=== PATIENT | male | born 1940 | race Caucasian/White ===

== ENCOUNTER 2021-07-13 08:24 | Outpatient (CLI) | payer SELFPAY ==
--- NOTE | ~2021-07-13 | US_ITS ---
EXAMINATION: US retroperitoneal duplex ltd EXAM DATE: 07/13/2021 09:12 INDICATION: Essential hypertension. TECHNIQUE: Multiple grayscale and Doppler images of the kidneys and renal arteries were obtained. T here is no prior study for comparison. FINDINGS: The aorta peak systolic velocity is 108 cm/s. Renal arteries interrogated in several segments from origin to hilum. RIGHT RENAL ARTERY Proximal segment (origin): 55 cm/s. Middle segment: 61 cm/s. Distal segment (hilum): 56 cm/s. LEFT RENAL ARTERY Proximal segment (origin): 58 cm/s. Middle segment: 46 cm/s. Distal segment (hilum): 42 cm/s. IMPRESSION: Renal artery Doppler velocities within normal limits. Reviewed, dictated and finalized at location B.
== END 2021-07-13 08:25 | disposition home or self-care (01) ==
LOC: ANHIMG 08:25
PROVIDERS: PCP Internal Medicine; Visit Provider Internal Medicine Cardiovascular Disease
DX: I11.0 Hypertensive heart disease with heart failure (principal)
CPT/HCPCS: 93976

== ENCOUNTER 2021-12-20 09:14 | Outpatient (CLI) | payer MEDICARE, SELFPAY ==
[2021-12-20 20:45] LABS: Alanine Aminotransferase 34 U/L (6-50); Albumin Level 4.1 g/dL (3.5-5.1); Alkaline Phosphatase 79 U/L (38-126); Anion Gap 11 mmol/L (8-16); Aspartate Amino Transferase 56 U/L (17-59); Bilirubin,Total 0.8 mg/dL (0.2-1.3); Blood Urea Nitrogen 21 mg/dL (9-20); Calcium 8.3 mg/dL (8.4-10.2); Carbon Dioxide 27 mmol/L (22-30); Chloride 103 mmol/L (98-107); Cholesterol 105 mg/dL (0-200); Estimated Glomerular Filt Rate > 60; Glucose 93 mg/dL (65-110); HDL Direct 30 mg/dL; Potassium 4.5 mmol/L (3.4-5.0); Sodium 141 mmol/L (137-145); Triglycerides 83 mg/dL (<150)
[2021-12-20 20:56] LABS: LDL Cholesterol Direct 48 mg/dL
== END 2021-12-20 09:15 | disposition home or self-care (01) ==
LOC: ANHGOSHLAB 09:17
PROVIDERS: PCP Family Medicine; Visit Provider Family Medicine
DX: I10 Essential (primary) hypertension (principal); I25.810 Atherosclerosis of coronary artery bypass graft(s) without angina pectoris
CPT/HCPCS: 36415; 80053; 80061

== ENCOUNTER 2021-12-20 09:29 | Emergency (ER) | payer MEDICARE, SELFPAY ==
[2021-12-20 09:42] VITALS: BP 130/117; PULSE 72; RESP 16; TEMP 36.5; O2SAT 95
--- NOTE | 2021-12-20 09:48 | ED.URI ---
HPI - URI/Sore Throat General Chief Complaint: Upper Respiratory Infection Stated Complaint: pt wasnts covid test, cough Time Seen by Provider: 12/20/21 09:48 Source: patient and RN notes reviewed Mode of arrival: ambulatory Limitations: no limitations History of Present Illness HPI Narrative: 81-year-old male presents with concern for exposure to COVID and cough. He reports his is positive for COVID and he started coughing 3 days ago. He denies body aches, chills, sweats, shortness of breath, fever. He denies nasal congestion, rhinorrhea, sore throat. MD elicited complaint: cough Related Data Allergies Allergy/AdvReac Type Severity Reaction Status Date / Time Sulfa (Sulfonamide Allergy Unknown Abdominal Verified 12/20/21 09:41 Antibiotics) Pain Review of Systems Review of Systems: CONSTITUTIONAL: Denies malaise, chills, sweats, or fever. EYES: Denies visual changes, redness, or discharge. ENT: Denies rhinorrhea, congestion, sinus pain, otalgia and sore throat. CARDIOVASCULAR: Denies chest pain, palpitations, or edema. RESPIRATORY: Reports cough. Denies dyspnea. GASTROINTESTINAL: Denies abdominal pain, nausea, vomiting, diarrhea SKIN: Denies rash or itching. MUSCULOSKELETAL: Denies myalgia. NEUROLOGIC: Denies headache. All systems reviewed & are unremarkable except as noted in HPI and below PMFSH Family History Family History Father Family history of congestive heart failure, Onset Age: 86 Sibling Family history of bipolar disorder Mother Family history of coronary artery disease, Onset Age: 92 Patient's mother is , Onset Age: 92 Social History Social History Smoking status: Former smoker Alcohol intake: current Comments At time of signature, agree with nursing past medical, surgical, social and family history. There is no relevant family history pertinent to the presenting complaint Exam Narrative: GENERAL: Well-appearing, well-nourished, and in no acute distress. HEAD: Normocephalic EYES: PERRLA, conjunctivae clear ENT: Nares clear. Mucous membranes moist. TM pearly salter with dull light reflex bilaterally; no tragal tenderness. Oropharynx not erythematous without lesions. Tonsils not enlarged and without exudate, no drooling, no hoarseness, no trismus, uvula midline. NECK: Supple. No lymphadenopathy CHEST: Clear to auscultation, breath sounds equal. No wheezing, rhonchi, rales, or stridor. No respiratory distress, speaks in full sentences. HEART: Regular rate and rhythm. No murmur heard. SKIN: Warm, dry, no rash. NEURO: Alert and oriented x3. PSYCH: Normal mood and affect Course Course Emergency Course: Discussed COVID antivirals benefits and risks, patient would like to try Paxlovid Patient is aware of diagnosis, understands and agrees to treatment plan. Anticipatory guidance given. Patient agrees to follow-up as directed and is aware of reasons to seek care at the emergency department. Portions of this record may have been created with voice recognition software Level of Care: Express Care Visit Vital Signs Vital signs: Vital Signs Temperature 97.7 F 12/20/21 09:42 Pulse Rate 72 12/20/21 09:42 Respiratory Rate 16 12/20/21 09:42 Blood Pressure 130/117 H 12/20/21 09:42 Pulse Oximetry 95 12/20/21 09:42 Temperature 97.7 F 12/20/21 09:42 Pulse Rate 72 12/20/21 09:42 Respiratory Rate 16 12/20/21 09:42 Blood Pressure 130/117 H 12/20/21 09:42 Pulse Oximetry 95 12/20/21 09:42 Reviewed. MDM - URI/Sore Throat MDM Narrative Medical decision making narrative: Differential diagnosis considered: [place] virus, strep pharyngitis, allergic rhinitis, upper respiratory tract infection, sinusitis, rhinosinusitis, nasopharyngitis. viral pharyngitis, otitis media, otitis externa, pneumonia, bronchitis, viral cough syndrome, mark
== END 2021-12-20 10:02 | disposition home or self-care (01) ==
PROVIDERS: Emergency Provider Nurse Practitioner; PCP Family Medicine
DX: U07.1 COVID-19 (principal); Z87.891 Personal history of nicotine dependence
CPT/HCPCS: 87426; 99213; C9803; G0463